=== PATIENT | male | born 2000 | race Two or more races ===

== ENCOUNTER 2022-04-07 01:47 | Emergency (ER) | payer SELFPAY ==
[~2022-04-07] VITALS: Ht 165.1 cm; Wt 63.6 kg
[2022-04-07 01:51] VITALS: BP 111/70
== END 2022-04-07 02:59 | disposition home or self-care (01) ==
LOC: ER 01:48
DX: J45.909 Unspecified asthma, uncomplicated (principal); F17.200 Nicotine dependence, unspecified, uncomplicated; V87.7XXA Person injured in collision between other specified motor vehicles (traffic), initial encounter; Y93.89 Activity, other specified; Y92.89 Other specified places as the place of occurrence of the external cause; Y99.8 Other external cause status
CPT/HCPCS: 99283

== ENCOUNTER 2022-11-21 02:57 | Emergency (ER) | payer SELFPAY ==
[~2022-11-21] VITALS: Ht 165.1 cm; Wt 70.0 kg
[2022-11-21 03:14] VITALS: BP 107/70
--- NOTE | 2022-11-21 03:22 | NUR ---
Dr. Zaidi performed FAST exam at bedside
== END 2022-11-21 03:25 ==
LOC: ER 02:57
DX: J45.909 Unspecified asthma, uncomplicated
CPT/HCPCS: 99283